=== PATIENT | female | born 1990 | race Asian ===

== ENCOUNTER → 2022-01-06 | Outpatient (CLI) | payer MEDICAID | LOC: COL.LAB 14:34 | DX: N97.9 Female infertility, unspecified (principal) ==

== ENCOUNTER → 2022-02-01 | Outpatient (CLI) | payer MEDICAID | LOC: COL.RAD 13:23 | DX: R10.2 Pelvic and perineal pain (principal); R10.13 Epigastric pain ==

== ENCOUNTER → 2022-02-02 | Outpatient (CLI) | payer MEDICAID | LOC: COL.RAD 09:35 | DX: R10.13 Epigastric pain (principal); R10.2 Pelvic and perineal pain ==

== ENCOUNTER → 2022-03-21 | Outpatient (CLI) | payer MEDICAID | LOC: COL.RAD 16:46 | DX: R07.9 Chest pain, unspecified (principal) ==

== ENCOUNTER 2022-04-22 16:22 | Emergency (ER) | payer MEDICAID ==
[2022-04-22 16:43] VITALS: BP 110/74; PULSE 81; TEMP 97.9
== END 2022-04-22 19:44 | disposition left against medical advice (07) ==
LOC: COL.ER 16:22
DX: M54.50 Low back pain, unspecified (principal)

== ENCOUNTER → 2022-05-05 | Outpatient (CLI) | payer MEDICAID | LOC: COL.RAD 06:19 | DX: K30 Functional dyspepsia (principal); R10.13 Epigastric pain | CPT/HCPCS: A9537 ==

== ENCOUNTER → 2022-05-09 | Outpatient (CLI) | payer MEDICAID | LOC: COL.RAD 07:25 | DX: M41.86 Other forms of scoliosis, lumbar region (principal); M51.37 Other intervertebral disc degeneration, lumbosacral region; K21.9 Gastro-esophageal reflux disease without esophagitis ==

== ENCOUNTER 2022-09-26 11:53 | Emergency (ER) | payer MEDICAID ==
[~2022-09-26] VITALS: Ht 167.6 cm; Wt 74.1 kg
[2022-09-26 12:00] VITALS: TEMP 98.2
[2022-09-26 13:11] LABS: COLLECTION METHOD CLEAN CATCH
[2022-09-26 13:21] LABS: SQUAMOUS EPITHELIAL 0-2 /hpf (0-10); URINE BACTERIA Occasional /hpf (NONE SEEN)
[2022-09-26 13:23] LABS: URINE APPEARANCE Clear (CLEAR/HAZY); URINE COLOR Yellow (YELLOW)
[2022-09-26 13:24] LABS: URINE BLOOD 2+ (NEGATIVE); URINE GLUCOSE Negative (NEGATIVE); URINE KETONE Negative (NEGATIVE); URINE NITRATE Negative (NEGATIVE); URINE PROTEIN(semi-quant) Negative (NEGATIVE); URINE UROBILINOGEN 0.2 E.U/dL (0.2-1.0)
[2022-09-26 14:34] LABS: BASO # 0.1 K/mm3 (0.0-0.2); BASO % 0.5 % (0.0-2.0); EOS # 0.4 K/mm3 (0.0-0.7); EOS % 4.1 % (0.0-4.0); GRAN # 5.5 K/mm3 (1.4-6.5); HEMATOCRIT 38.1 % (37.0-47.0); HEMOGLOBIN 12.5 g/dl (12.5-16.0); LYMPH # 2.8 K/mm3 (1.2-3.4); LYMPH % 29.6 % (20.0-51.0); MEAN CELL VOLUME 82 fl (80.0-100.0); MEAN CORPUSCULAR HEMOGLOBIN 27 pg (27-31); MEAN CORPUSCULAR HGB CONC 33 g/dl (33.0-37.0); MEAN PLATELET VOLUME 10.2 fl (7.4-10.4); MONO # 0.7 K/mm3 (0.1-0.6); MONO % 7.6 % (1.7-9.3); PLATELET COUNT 348 K/mm3 (130-400); RED BLOOD COUNT 4.66 M/mm3 (4.10-5.30); REDCELL DISTRIBUTION WIDTH-CV 14.2 % (11.5-14.5)
[2022-09-26 14:44] LABS: ALBUMIN 3.6 gm/dL (3.5-5.0); BILIRUBIN,TOTAL 0.3 mg/dL (0.2-1.2); CALCIUM 9.6 mg/dL (8.4-10.2); CREATININE, serum 0.71 mg/dL (0.57-1.11); POTASSIUM 4.9 mmol/L (3.5-4.5); TOTAL PROTEIN 8.5 gm/dL (6.2-8.1)
[2022-09-26] MEDS ORDERED: OMNICEF 300MG300 MG PO (15:07)
[2022-09-26 15:26] VITALS: BP 113/73; PULSE 76
[2023-05-19] MEDS ORDERED: PAXLOVID CO-PA1 EACH PO (13:00)
== END 2022-09-26 15:26 | disposition home or self-care (01) ==
LOC: COL.ER 11:53
PROVIDERS: Nurse Practitioner Primary Care
DX: N39.0 Urinary tract infection, site not specified (principal); Z32.02 Encounter for pregnancy test, result negative
CPT/HCPCS: J0696; J1885; Q9967

== ENCOUNTER 2022-12-14 11:49 | Emergency (ER) | payer MEDICAID ==
[~2022-12-14] VITALS: Ht 165.1 cm; Wt 90.9 kg
[~2022-12-14 11:49] MED LIST: OMNICEF 300MG300 MG PO
[2022-12-14 12:19] VITALS: BP 102/62; PULSE 93; TEMP 97.9
[2022-12-14 12:53] LABS: COLLECTION METHOD CLEAN CATCH
[2022-12-14 13:00] LABS: URINE BACTERIA Rare /hpf (NONE SEEN); URINE RBC 0-2 /hpf (0-2)
[2022-12-14 13:01] LABS: PH 5.5 (5.0-8.5); URINE APPEARANCE Clear (CLEAR/HAZY); URINE BLOOD 1+ (NEGATIVE); URINE COLOR Yellow (YELLOW); URINE GLUCOSE Negative (NEGATIVE); URINE KETONE Negative (NEGATIVE); URINE NITRATE Negative (NEGATIVE); URINE PROTEIN(semi-quant) Negative (NEGATIVE); URINE UROBILINOGEN 0.2 E.U/dL (0.2-1.0)
[2022-12-14] MEDS ORDERED: FLEXERIL 1010 MG/TAB PO (13:28)
[2022-12-14] MEDS ORDERED: VOLTAREN 50MG T50 MG PO (13:30)
== END 2022-12-14 14:13 | disposition home or self-care (01) ==
LOC: COL.ER 11:49
PROVIDERS: Physician Assistant
DX: M54.50 Low back pain, unspecified (principal)
CPT/HCPCS: J1885

== ENCOUNTER 2022-12-20 08:45 | Outpatient (RCR) | payer MEDICAID ==
[~2022-12-20 08:45] MED LIST changes: +FLEXERIL 1010 MG/TAB PO; +VOLTAREN 50MG T50 MG PO
== END 2022-12-23 | disposition home or self-care (01) ==
LOC: MKS.ESL.PT
DX: M54.50 Low back pain, unspecified (principal); G89.29 Other chronic pain

== ENCOUNTER 2022-12-27 08:02 | Outpatient (RCR) | payer MEDICAID | END 2023-01-22 | disposition home or self-care (01) | LOC: MKS.ESL.PT | DX: M54.50 Low back pain, unspecified (principal); G89.29 Other chronic pain ==

== ENCOUNTER 2023-10-01 14:57 | Emergency (ER) | payer MEDICAID ==
[~2023-10-01] VITALS: Wt 81.8 kg
[~2023-10-01 14:57] MED LIST changes: +PAXLOVID CO-PA1 EACH PO
[2023-10-01 15:03] VITALS: TEMP 98.3
[2023-10-01 15:25] LABS: BASO # 0.1 K/mm3 (0.0-0.2); BASO % 0.6 % (0.0-2.0); EOS # 0.5 K/mm3 (0.0-0.7); EOS % 4.9 % (0.0-4.0); GRAN # 5.4 K/mm3 (1.4-6.5); GRAN % 53.7 % (42.2-75.2); HEMATOCRIT 39.6 % (37.0-47.0); HEMOGLOBIN 13.2 g/dl (12.5-16.0); LYMPH # 3.3 K/mm3 (1.2-3.4); LYMPH % 32.8 % (20.0-51.0); MEAN CELL VOLUME 81 fl (80.0-100.0); MEAN CORPUSCULAR HEMOGLOBIN 27 pg (27-31); MEAN CORPUSCULAR HGB CONC 33 g/dl (33.0-37.0); MEAN PLATELET VOLUME 9.8 fl (7.4-10.4); MONO # 0.8 K/mm3 (0.1-0.6); MONO % 7.8 % (1.7-9.3); PLATELET COUNT 366 K/mm3 (130-400); RED BLOOD COUNT 4.87 M/mm3 (4.10-5.30); REDCELL DISTRIBUTION WIDTH-CV 13.4 % (11.5-14.5)
[2023-10-01 15:43] LABS: ALANINE AMINOTRANSFERASE 11 U/L (0-55); ALBUMIN 3.9 gm/dL (3.5-5.0); ALKALINE PHOSPHATASE 115 U/L (40-150); ANION GAP 12 mmol/L (7-16); AST,SGOT 16 U/L (5-34); BILIRUBIN,TOTAL 0.2 mg/dL (0.2-1.2); BLOOD UREA NITROGEN 13 mg/dL (7-19); CALCIUM 9.9 mg/dL (8.4-10.2); CARBON DIOXIDE 19 mmol/L (22-29); CHLORIDE 103 mmol/L (98-107); CREATININE, serum 0.74 mg/dL (0.57-1.11); GLUCOSE 92 mg/dL (70-99); LIPASE 19 U/L (8-78); POTASSIUM 3.8 mmol/L (3.5-4.5); SODIUM 134 mmol/L (136-145); TOTAL PROTEIN 8.4 gm/dL (6.2-8.1)
[2023-10-01 15:50] LABS: TROPONIN-I < 0.010 ng/mL (0.00-0.033)
[2023-10-01] MEDS ORDERED: PROTONIX 40MG T40 MG PO (16:59)
[2023-10-01 17:22] VITALS: BP 109/70; PULSE 74
== END 2023-10-01 17:25 | disposition home or self-care (01) ==
LOC: COL.ER 14:57
PROVIDERS: Personal Emergency Response Attendant
DX: D25.9 Leiomyoma of uterus, unspecified (principal); R06.02 Shortness of breath; Z87.19 Personal history of other diseases of the digestive system
CPT/HCPCS: C9113; J2060; Q9967

== ENCOUNTER 2023-11-14 13:12 | Emergency (ER) | payer MEDICAID ==
[~2023-11-14 13:12] MED LIST changes: +PROTONIX 40MG T40 MG PO
[2023-11-14 13:23] VITALS: TEMP 98.2
[2023-11-14] MEDS ORDERED: Ketorolac 30 MG/ML VIAL IM ONE (14:00)
[2023-11-14 14:10] LABS: COLLECTION METHOD CLEAN CATCH
[2023-11-14 14:19] LABS: PH 5.5 (5.0-8.5); URINE APPEARANCE CLOUDY (CLEAR/HAZY); URINE BLOOD TRACE (NEGATIVE); URINE COLOR YELLOW (YELLOW); URINE GLUCOSE NEGATIVE (NEGATIVE); URINE KETONE NEGATIVE (NEGATIVE); URINE NITRATE NEGATIVE (NEGATIVE); URINE PROTEIN(semi-quant) NEGATIVE (NEGATIVE); URINE UROBILINOGEN 0.2 E.U/dL (0.2-1.0)
[2023-11-14] MEDS ORDERED: FLEXERIL 1010 MG/TAB PO (14:44)
[2023-11-14 15:01] VITALS: BP 100/68; PULSE 81
== END 2023-11-14 15:01 | disposition home or self-care (01) ==
LOC: COL.ER 13:12
PROVIDERS: Physician Assistant
DX: M54.50 Low back pain, unspecified (principal); G89.29 Other chronic pain
CPT/HCPCS: J1885; J2360